=== PATIENT | female | born 1965 | race Caucasian/White ===

== ENCOUNTER 2016-10-14 11:30 | Inpatient (IN) | payer MEDICAID ==
[~2016-10-14] VITALS: Ht 162.6 cm; Wt 89.6 kg
--- NOTE | ~2016-10-14 | CON ---
PATIENT'S NAME: DANIEL BALLARD [facility] AGE: 51 Y [address] ROOM: [place] [address] LOCATION: [facility] [place] ADMIT DATE: 10/14/2016 Consultation DISCHARGE DATE: FAMILY PHYSICIAN: YENI CHAO MD ATTENDING PHYSICIAN: YENI CHAO DATE OF CONSULTATION: 10/14/2016 REFERRING PHYSICIAN: Mak Solano MD CHIEF COMPLAINT: Right chin abscess/cellulitis. HISTORY OF PRESENT ILLNESS: The patient is a 51-year-old female with approximately 1-week history of pain and swelling located over her right chin. The patient developed associated erythema, was evaluated by Dr. Yeni Chao on 10/13/2016, at which time she was given IM Rocephin and recommend consideration for admission IV antibiotics. The patient subsequently refused, presented today, 10/14/2016, with progressive pain and discomfort. She was admitted to [facility] where she was placed on IV vancomycin. CBC, CMS, UA with C and S pending. Blood cultures were also performed. PAST MEDICAL HISTORY: Significant for hypertension, hypothyroidism, hyperlipidemia, seizure disorder, and COPD. ALLERGIES: NONE. MEDICATIONS: See MAR. SOCIAL HISTORY: She is a 51-year-old female. She is a smoker. FAMILY HISTORY: Noncontributory. PHYSICAL EXAMINATION: GENERAL: She is a well-developed and well-nourished female, alert, oriented, cooperative with the exam. HEENT: Eyes: EOMI. PERRL. Conjunctivae are clear. Ears: AD, external canals normal. TMs are clear. , external canals normal. TMs are clear. Nose: Nasal mucosa is not edematous or erythematous. Has no rhinorrhea. Oropharynx and oral cavity: Tongue is midline. Normal gag. Dentition is in PATIENT'S NAME: DANIEL BALLARD [facility] AGE: 51 Y [address] ROOM: [place] [address] LOCATION: [facility] [place] ADMIT DATE: 10/14/2016 Consultation DISCHARGE DATE: FAMILY PHYSICIAN: YENI CHAO MD ATTENDING PHYSICIAN: YENI CHAO poor repair. The patient has significant swelling over the right buccal gingival sulcus inferiorly at the area of the mental foramen. She has associated induration and inflammation with what appears to be an open sore overlying her right mental chin. NECK: She has some induration and swelling in her median, submental, and submandibular region. It is tender to palpation. She has no palpable cervical lymphadenopathy. NEURO: Cranial nerves II through XII are grossly intact. ASSESSMENT: Right chin (mental) abscess with cellulitis. RECOMMENDATIONS: Right chin abscess was I and D'd at the bedside. Aerobic and anaerobic cultures were obtained. The patient had extensive purulent debris, was extremely tender, subsequently recommend that she be taken to the operating room on 10/15/2016 for I and D of right chin abscess, cellulitis, and probable placement of packing. MD LINA RAY/kolton /[id number] d: 10/14/16 2248 t: 10/18/16 0737, CONSULTATION REPORT
--- NOTE | ~2016-10-14 | DS ---
PATIENT'S NAME: DANIEL BALLARD [facility] AGE: 51 Y [address] ROOM: [address] [address] LOCATION: [facility] [place] ADMIT DATE: 10/14/2016 Discharge Summary DISCHARGE DATE: 10/17/2016 FAMILY PHYSICIAN: Torsten Chao MD ATTENDING PHYSICIAN: Torsten Chao FINAL/DISCHARGE DIAGNOSES: 1. Abscess/cellulitis right chin/face status post incision and drainage, culture positive for methicillin-resistant Staphylococcus aureus, sensitive to vancomycin and Bactrim. 2. Hypertension, essential. 3. Major depression in remission. 4. Chronic obstructive pulmonary disease and asthma. 5. Hypothyroidism, on replacement. 6. Chronic O2 dependence at night. 7. Chronic gastroesophageal reflux disease. 8. Hypertension. 9. Hyperlipidemia. 10. Chronic anxiety. 11. Chronic pain syndrome. HOSPITAL COURSE: This 51-year-old female was admitted to the hospital with an abscess and cellulitis in her right face, right chin area that required treatment. She was placed on IV vancomycin and seen at my request by Dr. Mak Solano, Ear, Nose, and Throat surgeon. Please see his progress notes, history and physical/consultation, and operative note. The patient was admitted, placed on IV vancomycin, and had an I and D done in the room by Dr. Solano on the day of admission and then was taken to the operating room the next day for more thorough treatment to this area. Again, see the operative note. The patient improved and is ready to go home today on 10/17/2016. She goes home on the medication list shown. Her culture came back showing the above. She goes out on Bactrim DS 1 twice a day for 10 more days. She will see me in the office tomorrow to refill her other prescriptions. She is to follow up with Dr. Solano in a couple of weeks. If she has high fever, chills, or other problems or rash, she is to be seen back earlier and she understands. MD MARYAN AGUILAR/kolton PATIENT'S NAME: DANIEL BALLARD [facility] AGE: 51 Y [address] ROOM: [place] [address] LOCATION: [facility] [place] ADMIT DATE: 10/14/2016 Discharge Summary DISCHARGE DATE: 10/17/2016 FAMILY PHYSICIAN: Torsten Chao MD ATTENDING PHYSICIAN: Torsten Chao /[id number] d: 10/17/16 1638 t: 10/24/16 1022, DISCHARGE SUMMARY
--- NOTE | ~2016-10-14 | OR ---
PATIENT'S NAME: DANIEL BALLARD [facility] AGE: 51 Y [address] ROOM: [place] [address] LOCATION: [facility] [place] ADMIT DATE: 10/14/2016 OR/Procedure Report DISCHARGE DATE: FAMILY PHYSICIAN: YENI ROLDAN MD ATTENDING PHYSICIAN: YENI ROLDAN SURGEON: Mak Solano MD BOOK JOGGER: Alejandra Johnson PA-C. DATE OF PROCEDURE: 10/15/2016 PREOPERATIVE DIAGNOSIS: Right chin abscess. POSTOPERATIVE DIAGNOSIS: Right chin abscess. OPERATION/PROCEDURE: I and D of right chin abscess with packing. ESTIMATED BLOOD LOSS: Minimal. COMPLICATIONS: None. BRIEF HISTORY: The patient is a 51-year-old female with 1-week history of progressively enlarging right chin abscess. She underwent I and D with cultures on the evening of 10/15/2016. The patient was noted to have significant swelling and induration was scheduled for repeat I and D with placement of packing. DESCRIPTION OF PROCEDURE: The patient was taken to the operating room, laid in supine position with general endotracheal anesthesia. The patient's head was rotated to the left. The patient's face was prepped and draped in usual sterile fashion using Betadine solution. Approximately, a 1.5 cm vertical skin incision was performed through the opening of the right chin. Hemostasis noted to be adequate. Abscess cavity was opened with a hemostat with gross purulence was present. The abscess was opened posteriorly and anteriorly as well as inferiorly over the lower margin of the mandible. A large amount of purulent material was present. This was irrigated. The wound was then packed with quarter-inch iodoform gauze. The patient tolerated the procedure well, was aroused, extubated, and discharged from the operating room to recovery room in satisfactory condition. MAK SOLANO MD TVC/modl PATIENT'S NAME: DANIEL [facility]AD[facility] AGE: 51 Y [address] ROOM: [place] [address] LOCATION: [facility] [place] ADMIT DATE: 10/14/2016 OR/Procedure Report DISCHARGE DATE: FAMILY PHYSICIAN: YENI ROLDAN MD ATTENDING PHYSICIAN: YENI ROLDAN /[id number] d: 10/15/16 1529 t: 10/18/16 0739, OPERATIVE SUMMARY
[~2016-10-14 11:30] MED LIST: BENADRYL25 MG PO; BUSPIRONE HCL30 MG PO; CODEINE30 MG PO; COZAAR50 MG PO; FISH OIL 1,0001 EACH PO; FLEXERIL10 MG PO; KLONOPIN1 MG PO; LEVOTHROID(SYN75 MCG PO; LUNESTA1 MG PO; LYRICA 150MG C150 MG PO; MAXALT10 MG PO; ONDANSETRON ODT4 MG PO; OXYGEN M-15 INH; PAXIL30 MG PO; PROVENTIL OR V6.7 GM INH; REQUIP1 MG PO; SPIRIVA HA30 CAP/INH INH; SPIRIVA RESPIMAT4 G1 INH; TOPROL XL 5050 MG PO
[2016-10-14] MEDS ORDERED: NORCO 10-325 T1 EACH PO (14:07)
[2016-10-14] MEDS ORDERED: TRIACET 0.1% 8080 GM TOP (14:08)
[2016-10-14] MEDS ORDERED: PRILOSEC20 MG PO (14:08)
[2016-10-14] MEDS ORDERED: VITAMIN D5000 UNI1 PO (14:09)
[2016-10-14] MEDS ORDERED: ZESTRIL40 MG PO (14:09)
[2016-10-14] MEDS ORDERED: LIPITOR40 MG PO (14:09)
[2016-10-14] MEDS ORDERED: KEPPRA500 MG PO (14:10)
[2016-10-14] MEDS ORDERED: ADDERALL XR 1010 MG PO (14:11)
[2016-10-14] MEDS ORDERED: AUGMENTIN 875-1 EACH PO (14:12)
[2016-10-14] MEDS ORDERED: VALIUM5 MG PO (14:13)
[2016-10-14] MEDS ORDERED: ALBUTEROL2.5 MG/31 INH (14:22)
[2016-10-14 15:15] LABS: BASOPHIL % 0.1 %; HEMATOCRIT 42.1 % (33.0-46.0); HEMOGLOBIN 13.7 g/dL (10.0-15.0); IMMATURE GRANULOCYTE # 0.1 K/uL (0.0-0.3); IMMATURE GRANULOCYTE % 0.5 %; LYMPHOCYTE # 2.3 K/uL (0.8-4.0); LYMPHOCYTE % 16.4 %; MCHC 32.5 gm/dL (32.0-36.5); MCV 89.2 fl (83.0-98.0); MONOCYTE # 0.5 K/uL (0.0-1.0); MONOCYTE % 3.6 %; MPV 10.4 fl (9.4-12.4); NEUTROPHIL # (ANC) 11.3 K/uL (1.8-7.8); NEUTROPHIL % 79.4 %; NRBC % 0 /100WBC (0-0.00); RBC 4.72 M/uL (3.50-5.50); RDW-CV 15.1 % (11.9-14.6); WBC 14.2 K/uL (4.0-11.0)
[2016-10-14 15:18] LABS: PLATELET COUNT 331 K/uL (150-450)
[2016-10-14 15:31] LABS: ALBUMIN 3.1 gm/dL (3.5-5.0); ALK PHOS 140 IU/L (33-138); ALT 26 IU/L (12-78); ANION GAP 10.2 (10.0-19.0); AST 10 IU/L (10-40); BLOOD UREA NITROGEN 11 mg/dL (6-24); CALCIUM 9.1 mg/dL (8.5-10.5); CHLORIDE 107 mMol/L (96-110); CO2 26 mMol/L (22-32); CREATININE 0.8 mg/dL (0.5-1.1); ESTIMATED GFR (MDRD EQUATION) > 60; POTASSIUM 4.2 mMol/L (3.7-5.1); SODIUM 139 mMol/L (135-145); TOTAL PROTEIN 7.7 g/dL (6.0-8.4)
[2016-10-14 15:32] LABS: TOTAL BILIRUBIN 0.3 mg/dL (0.0-1.5)
[2016-10-14 16:30] LABS: BILIRUBIN URINE NEGATIVE (NEGATIVE); BLOOD URINE NEGATIVE /UL (NEGATIVE); COLOR URINE YELLOW (YELLOW); GLUCOSE URINE NEGATIVE (NEGATIVE); KETONE URINE NEGATIVE (NEGATIVE); LEUKOCYTES URINE NEGATIVE /UL (NEGATIVE); NITRITE URINE NEGATIVE (NEGATIVE); PROTEIN URINE NEGATIVE (NEGATIVE); TURBIDITY URINE CLEAR (CLEAR); UROBILINOGEN URINE NORMAL (NORMAL)
--- NOTE | 2016-10-14 17:51 | NUR ---
AAOx3. Cooperative with cares. Up w/SBA. IV to w/IVF @75. Casey also. Gave Evelio 2tabs today after MD cultured face. To have I&D tomorrow a.m. @0730. Regular diet. NPO @midnight. VSS, afebrile, on RA. Voiding well.
--- NOTE | 2016-10-14 18:13 | NUR ---
Pt is 51 yo female admitted today with cellulitis of her right lower lip and jaw area, has edema of right lower facial area, erythema same area and down on to her neck anteriorly. IV infusing in left hand without erythema or edema noted at site. patient is in isolation. education is given as documented. patient denies questions. pneumatics are on bilat calves. call light is within reach. patient denies needs at this time. report is given to FLOR Rasmussen.
--- NOTE | 2016-10-15 03:50 | NUR ---
Significant Event: Patient alert and oriented X4. UP with stand by assist. IV to L) hand running NS at 75 with intermittent vanco. IV still has blood return. NPO since 0000. Pre op check list started. Home meds called to Dr. Chao. [place] given last at 0345. Dressing to lower chin, some drainage noted, purulent. Patient takes dressing off often, instrution done not to pick at chin, but patient does sometimes anyways. Plan for surgery at 0730, patient will be ready by 0600 for transport. Consents printed but no risks and benefits done, so not signed. Contact iso to ruleout MRSA. Voids in small amounts. No problems with balance this shift, but bed alarm still on. Patient uses call light when wants to get up. Follow up: Monitor chin sites
--- NOTE | 2016-10-15 12:07 | NUR ---
PT SCREENED D/T MST. NO SIGNIFICANT WT CHANGE FROM PREVIOUS ADMIT. NO NUTRITION RELATED DIAGNOSIS IDENTIFIED AT THIS TIME. WILL ASSIST NEEDED.
--- NOTE | 2016-10-15 15:34 | NUR ---
Met with patient at bedside and introduced myself and the role of the CM department. Patient was very sleepy and difficult to meet with as she kept falling asleep. It was also noted that her speech was slurred or mumbled, which the nurse reports is normal for her. She states she lives at home with a boyfriend. She is independent at home with her ADL's. She denies any needs at this time and she does not anticipate having any discharge needs. Will continue to follow.
--- NOTE | 2016-10-15 16:27 | NUR ---
Significant Event:Returned from PACU at 0930, dressing of 2x2 to chin changed once and has remained dry & intact, Protivin given in PACU and patient has been sleeping the entire shift, does awaken but is groggy and speech is mumbled-can speak clearly if more awake/alert, encouraged to try and stay more awake this afternoon, up to bathroom-refused shower earlier-encouraged to take Hibiclens bath, does pick by face, encouraged not to pick near open wound Follow up:
--- NOTE | 2016-10-16 03:02 | NUR ---
A&O. Dressing to chin CDI. SBA. Voiding well. No nausea. Harriet given x 1 this shift. Isolation for possible MRSA. Uses call light appropriately. Continue plan of care and discharge to home when appropriate.
[2016-10-16 03:30] LABS: CREATININE 0.6 mg/dL (0.5-1.1); ESTIMATED GFR (MDRD EQUATION) > 60
--- NOTE | 2016-10-16 15:50 | NUR ---
Significant Event:Is A/O.SL in Lt.hand.IV in Rt arm.Has tele on.Rt.chin/jaw area swollen,reddened & sore to touch.Packing was removed by Dr.Left crenshaw.Has been up with standby assist.Prob home tomorrow. Follow up:
--- NOTE | 2016-10-17 03:58 | NUR ---
A&O. Independent to bathroom. IV infusing NS@ 75. Gauze to I&D site. Possible MRSA- waiting for lab results. Telemetry. Leiter x 1 this shift. Probable discharge to home today.
[2016-10-17 06:31] LABS: CREATININE 0.8 mg/dL (0.5-1.1); ESTIMATED GFR (MDRD EQUATION) > 60
[2016-10-17] MEDS ORDERED: BACTROBAN N1 GM/TUBE TOP (09:06)
[2016-10-17] MEDS ORDERED: BACTRIM DS1 TAB PO (09:06)
--- NOTE | 2016-10-17 15:14 | NUR ---
Patient educated on medications, followup appointments, MRSA, wound care. Vital signs taken. IV discontinued. Patient taken by wheelchair with all personal belongings to main lobby for transport home in family vehicle.
== END 2016-10-17 14:15 | disposition disaster alternative care site (69) | DRG 603 ==
LOC: GMSU 11:47
PROVIDERS: ADMIT Family Medicine
PROC: 0W9 Anatomical Regions, General, Drainage (ICD-10-PCS; principal; 2016-10-15)
DX: L02.01 Cutaneous abscess of face (principal); Z99.81 Dependence on supplemental oxygen; L03.211 Cellulitis of face; I10 Essential (primary) hypertension; B95.62 Methicillin resistant Staphylococcus aureus infection as the cause of diseases classified elsewhere; J44.9 Chronic obstructive pulmonary disease, unspecified; J45.909 Unspecified asthma, uncomplicated; F32.9 Major depressive disorder, single episode, unspecified; E03.9 Hypothyroidism, unspecified; K21.9 Gastro-esophageal reflux disease without esophagitis; E78.5 Hyperlipidemia, unspecified; F41.9 Anxiety disorder, unspecified; G89.4 Chronic pain syndrome; G40.909 Epilepsy, unspecified, not intractable, without status epilepticus
CPT/HCPCS: J1100; J2250; J2405; J3370; J7030